=== PATIENT | female | born 1995 | race African-American/Black ===

== ENCOUNTER 2017-04-23 20:35 | Emergency (ER) | payer MEDICAID ==
[~2017-04-23] VITALS: Ht 154.9 cm; Wt 60.0 kg
[2017-04-24 01:35] VITALS: BP 122/80
[2017-04-24 01:39] LABS: CLARITY URINE TURBID (CLEAR); COLOR URINE YELLOW (YELLOW); GLUCOSE URINE NEGATIVE (NEGATIVE); KETONES URINE 1+ (NEGATIVE); LEUKOCYTE ESTERASE URINE NEGATIVE (NEGATIVE); NITRITE URINE NEGATIVE (NEGATIVE); OCCULT BLOOD URINE NEGATIVE (NEGATIVE); PH URINE 7.5 (4.5-8.0); PROTEIN URINE NEGATIVE (NEGATIVE); SPECIFIC GRAVITY URINE 1.021 (1.005-1.030); UROBILINOGEN URINE 0.2 E.U./dL (0.2-1.0)
[2017-04-24] MEDS ORDERED: IBUPROFEN 600MG TABLET PO ONE (02:30)
== END 2017-04-24 02:59 | disposition home or self-care (01) ==
LOC: ER 20:35
DX: B34.9 Viral infection, unspecified (principal)
CPT/HCPCS: 81001; 81025; 87070; 87430; 99284